=== PATIENT | female | born 1940 | race Caucasian/White ===

== ENCOUNTER 2019-02-15 10:32 | Emergency (ER) | payer OTHER ==
[~2019-02-15] VITALS: Ht 152.4 cm; Wt 70.3 kg
--- NOTE | 2019-02-15 10:45 | NUR ---
PATIENT AMB. TO BED # 9
[2019-02-15 10:49] VITALS: BP 146/76
--- NOTE | 2019-02-15 11:26 | NUR ---
PT HAS BEEN EVALUATED BY DR. CONNER.
--- NOTE | 2019-02-15 11:43 | NUR ---
PELVIC EXAM COMPETED BY DR. CONNER WITH FEMALE RN DIDI. LAB AT BEDSIDE TO DRAW BLOOD.
--- NOTE | 2019-02-15 11:52 | NUR ---
PT REFUSED IV. DR. CONNER MADE AWARE. U/S AT BEDSIDE. PT ON MONITOR NSR, SPO2 98%. PT DENIES PAIN.
[2019-02-15 11:56] LABS: BASOPHILS % (AUTO) 0.4 % (0.0-2.0); EOSINOPHILS # (AUTO) 0.1 K/uL (0-0.4); EOSINOPHILS % (AUTO) 0.9 % (0.0-4.0); HEMATOCRIT 37.9 % (36-48); HEMOGLOBIN 12.1 g/dL (12.0-16.0); LYMPHOCYTES # (AUTO) 1.4 K/uL (2.5-16.5); MEAN CORPUSCULAR HEMOGLOBIN 25 pg (27-31); MEAN CORPUSCULAR HGB CONC 32 g/dL (33-37); MEAN CORPUSCULAR VOLUME 78.4 fL (80-94); MONOCYTES # (AUTO) 0.5 K/uL (0.8-1.0); MONOCYTES % (AUTO) 5.6 % (1.7-9.3); NEUTROPHILS # (AUTO) 6.9 K/uL (1.8-7.7); NEUTROPHILS % (AUTO) 77.1 % (42.2-75.2); PLATELET COUNT (AUTO) 313 K/uL (140-450); RED BLOOD CELL COUNT(AUTO) 4.83 MIL/uL (4.20-5.40); RED CELL DISTRIBUTION WIDTH 15.1 % (11.6-13.7)
[2019-02-15 12:07] LABS: ANION GAP 13.9 (8-16); CARBON DIOXIDE 28.6 mmol/L (21-32); CHLORIDE 103 mmol/L (98-107); CREATININE 0.6 mg/dL (0.6-1.3); GLUCOSE 119 mg/dL (74-106); POTASSIUM 4.5 mmol/L (3.5-5.1); SODIUM SERUM 141 mmol/L (136-145); UREA NITROGEN, BLOOD 20 mg/dL (7-18)
[2019-02-15 12:11] LABS: PROTHROMBIN TIME 10.3 secs (10.8-13.4)
[2019-02-15 12:13] LABS: ALBUMIN 3.7 g/dL (3.4-5.0); ASPARTATE AMINOTRANSFERASE 27 U/L (15-37); TOTAL BILIRUBIN 0.5 mg/dL (0.0-1.0)
--- NOTE | 2019-02-15 12:49 | NUR ---
SECOND PELVIC EXAM COMPLETED BY DR. CONNER WITH FEMALE RN DIDI. PT NOW AGREES TO IV PLACEMENT.
[2019-02-15] MEDS ORDERED: KETOROLAC 15 MG/ML VIAL IVP ONE (13:45)
--- NOTE | 2019-02-15 14:01 | NUR ---
PT MEDICATED FOR PAIN. PT'S FRIEND AT BEDSIDE. VAGINAL BLEEDING CONTROLLED. AWAITING DISPOSITON.
--- NOTE | 2019-02-15 14:36 | NUR ---
PT'S PAIN DECREASED 3/10
--- NOTE | 2019-02-15 15:03 | NUR ---
DYAN HICKEY JOB PLACEMENT SPECIALIST CALLED FOR MORE INFORMATION ABOUT PT. SHE WILL CALL BACK.
--- NOTE | 2019-02-15 15:18 | NUR ---
PT REMAINS A&OX4, SKIN WARM PINK AND DRY, BREATHING EVEN AND UNLABOERD. NSR ON MONITOR. PELVIC PAIN DECREASED /. AWAITING TRANSFER INFORMATION. CONTINUE TO MONITOR.
--- NOTE | 2019-02-15 15:52 | NUR ---
DR. CONNER AT BEDSIDE TO SPEAK TO PT.
--- NOTE | 2019-02-15 16:26 | NUR ---
LAB AT BEDSIDE TO DRAW BLOOD.
--- NOTE | 2019-02-15 16:30 | NUR ---
PT REMAINS A&OX4, BREATHING EVEN AND UNLABORED. NSR ON MONITOR. DENIES PAIN, REQUESTING TO EAT. PT IS NPO PER DR. CONNER AT THIS TIME. PT MADE AWARE. PT'S FRIEND YAMILEX AT BEDSIDE. AWAITING TRANSFER INFO, NO NEW INFO AT THIS TIME.
[2019-02-15 16:46] LABS: BASOPHILS % (AUTO) 0.4 % (0.0-2.0); EOSINOPHILS # (AUTO) 0.1 K/uL (0-0.4); HEMATOCRIT 35.5 % (36-48); HEMOGLOBIN 11.6 g/dL (12.0-16.0); LYMPHOCYTES # (AUTO) 1.6 K/uL (2.5-16.5); LYMPHOCYTES % (AUTO) 22.6 % (20.5-51.1); MEAN CORPUSCULAR HEMOGLOBIN 25 pg (27-31); MEAN CORPUSCULAR HGB CONC 33 g/dL (33-37); MEAN CORPUSCULAR VOLUME 77.8 fL (80-94); MONOCYTES # (AUTO) 0.6 K/uL (0.8-1.0); NEUTROPHILS # (AUTO) 4.8 K/uL (1.8-7.7); PLATELET COUNT (AUTO) 280 K/uL (140-450); RED BLOOD CELL COUNT(AUTO) 4.56 MIL/uL (4.20-5.40); RED CELL DISTRIBUTION WIDTH 15.1 % (11.6-13.7); WHITE BLOOD COUNT (AUTO) 7.1 K/uL (4.8-10.8)
--- NOTE | 2019-02-15 17:19 | NUR ---
DR. CONNER AT BEDSIDE TO SPEAK TO PT AND PT'S FRIEND AND ANSWER QUESTIONS.
--- NOTE | 2019-02-15 17:41 | NUR ---
PT RE-EVALUATED BY DR. CONNER. VAGINAL BLEEDING CONTROLLED. NO DIZZINESS/SOB. PT DENIES PAIN.
[2019-02-15 18:07] VITALS: BP 145/57
--- NOTE | 2019-02-15 18:07 | NUR ---
Patient discharged with v/s stable. Written and verbal after care instructions given and explained. Patient alert, oriented and verbalized understanding of instructions. Ambulatory with steady gait. All questions addressed prior to discharge. ID band removed. Patient advised to follow up with PMD. Opportunity to ask questions provided and answered.
== END 2019-02-15 18:07 | disposition home or self-care (01) ==
LOC: MED 10:32
DX: N95.0 Postmenopausal bleeding (principal)
CPT/HCPCS: 36415; 76856; 80053; 81002; 85025; 85610; 85730; 86886; 86900; 86901; 96374; 99284; J1885; Q0092

== ENCOUNTER 2022-10-28 23:30 | Inpatient (IN) | payer OTHER ==
[~2022-10-28] VITALS: Ht 149.9 cm; Wt 58.5 kg
--- NOTE | 2022-10-28 23:34 | NUR ---
MARY SARMIENTO TO BED #7
[2022-10-28 23:36] VITALS: BP 181/126
[2022-10-29] MEDS ORDERED: PHENAZOPYRIDINE 100 MG TAB PO ONE (00:10)
[2022-10-29 00:40] LABS: APPEARANCE,URINE CLEAR (CLEAR); BILIRUBIN,URINE NEGATIVE (NEGATIVE); BLOOD, URINE 3+ (NEGATIVE); COLOR,URINE YELLOW (YELLOW); LEUKOCYTE ESTERASE ,URINE NEGATIVE (NEGATIVE); NITRITE, URINE NEGATIVE (NEGATIVE); UGLUCOSE NEGATIVE (NEGATIVE)
[2022-10-29 00:40] LABS: BASOPHILS % (AUTO) 0.7 % (0.0-2.0); EOSINOPHILS # (AUTO) 0.1 K/uL (0-0.4); EOSINOPHILS % (AUTO) 1.9 % (0.0-4.0); HEMATOCRIT 43.6 % (36-48); HEMOGLOBIN 13.8 g/dL (12.0-16.0); LYMPHOCYTES # (AUTO) 1.1 K/uL (2.5-16.5); LYMPHOCYTES % (AUTO) 17.4 % (20.5-51.1); MEAN CORPUSCULAR HEMOGLOBIN 26 pg (27-31); MEAN CORPUSCULAR HGB CONC 32 g/dL (33-37); MEAN CORPUSCULAR VOLUME 81.1 fL (80-94); MONOCYTES # (AUTO) 0.7 K/uL (0.8-1.0); MONOCYTES % (AUTO) 10.3 % (1.7-9.3); NEUTROPHILS # (AUTO) 4.5 K/uL (1.8-7.7); NEUTROPHILS % (AUTO) 69.7 % (42.2-75.2); PLATELET COUNT (AUTO) 199 K/uL (140-450); RED BLOOD CELL COUNT(AUTO) 5.38 MIL/uL (4.20-5.40); RED CELL DISTRIBUTION WIDTH 16.9 % (11.6-13.7); WHITE BLOOD COUNT (AUTO) 6.5 K/uL (4.8-10.8)
[2022-10-29 00:49] LABS: RBC,URINE TOO NUMEROUS TO COUN /HPF (0-5); WBC,URINE 0-5 /HPF (0-5)
[2022-10-29 01:14] LABS: ALBUMIN 3.8 g/dL (3.4-5.0); ASPARTATE AMINOTRANSFERASE 35 U/L (15-37); CARBON DIOXIDE 28.6 mmol/L (21-32); CHLORIDE 104 mmol/L (98-107); CREATININE 0.7 mg/dL (0.6-1.3); GLUCOSE 116 mg/dL (74-106); POTASSIUM 4.6 mmol/L (3.5-5.1); SODIUM SERUM 142 mmol/L (136-145); TOTAL BILIRUBIN 0.4 mg/dL (0.0-1.0); UREA NITROGEN, BLOOD 23 mg/dL (7-18)
--- NOTE | 2022-10-29 01:20 | NUR ---
82YR OLD FEMALE BIB EMS C/O VAG BLEEDING X2HRS . HX OF UTERINE CA /BLADDER CA IN REMISSION. PT IS A&OX4 ON BEDSIDE ON AIR DIRECTOR. IS TACHYCADIAC. RESP EVEN AND UNLABORED. BED AT LOWEST LEVEL SIDE RAILS UP X2 IV CONTRAST UTERINE CA
--- NOTE | 2022-10-29 02:06 | NUR ---
COVID SWAB COLLECTED AND SENT TO LAB
[2022-10-29] MEDS ORDERED: TYL650S RC (02:07)
[2022-10-29] MEDS ORDERED: DULO30EC PO (02:08)
[2022-10-29] MEDS ORDERED: ACET-8905 PO (02:09)
[2022-10-29] MEDS ORDERED: XALOS OP (02:10)
[2022-10-29] MEDS ORDERED: ATI.5 PO (02:11)
[2022-10-29] MEDS ORDERED: PYR100 PO (02:12)
[2022-10-29] MEDS ORDERED: OXYB5TAB44 PO (02:12)
[2022-10-29] MEDS ORDERED: PRAV20TA5 PO (02:13)
[2022-10-29] MEDS ORDERED: ZOLP10TA1 PO (02:14)
--- NOTE | 2022-10-29 02:15 | NUR ---
MED RECONCILE COMPLETED
[2022-10-29] MEDS ORDERED: NACL 0.9% 1,000 ML IV ONE (02:20)
[2022-10-29] MEDS ORDERED: cefTRIAXone 1,000 MG VIAL ONE (02:37)
[2022-10-29] MEDS ORDERED: NACL 0.9% 1,000 ML IV SCH (03:05)
--- NOTE | 2022-10-29 04:04 | NUR ---
PT HAVING 6/10 PAIN . MED ORDERS RECIEVED FROM DR CONTI
[2022-10-29] MEDS ORDERED: HYDROcodone/APAP 5/325 MG 1 TAB TAB PO PRN (04:10)
[2022-10-29] MEDS ORDERED: HYDROcodone/APAP 5/325 MG 1 TAB TAB ONE (04:11)
--- NOTE | 2022-10-29 06:40 | NUR ---
PT RESTING IN BED ON CARDIAC HEART MONITOR. HOB ELEVATED. RESP EVEN AND UNLABORED
--- NOTE | 2022-10-29 07:25 | NUR ---
Report received from EUGENIO Jackson for transfer of care.
--- NOTE | 2022-10-29 07:49 | NUR ---
Spoke to Brooks, son, and updated him on patients condition. Brooks [phone]
--- NOTE | 2022-10-29 08:27 | NUR ---
Note ana maria in EDM - 10/29/22 at 0851 by FARHAT Patient will be admitted to care of Dr. Claire. [facility] [place] [facility] completed. Report to LUIZ Coelho.
--- NOTE | 2022-10-29 08:36 | NUR ---
Patient will be admitted to care of Alethea KINNEY. Admitted to Telemetry. Will go to room 111A. Belongings list completed. Report to Laquita DEE.
--- NOTE | 2022-10-29 08:37 | NUR ---
Pt report given to Laqiuta DEE. Transfer of care at this time.
--- NOTE | 2022-10-29 08:39 | NUR ---
The patient's care was reviewed and supervised by Teressa Crowe, RN, RN.
[2022-10-29] MEDS ORDERED: ACETAMINOPHEN 325 MG TAB PO PRN (08:45)
[2022-10-29] MEDS ORDERED: HYDROcodone/APAP 7.5/325 MG 1 TAB PO PRN (08:45)
[2022-10-29] MEDS ORDERED: guaiFENesin DM 200/20 MG-10 ML 10 ML UDC PO PRN (08:45)
[2022-10-29] MEDS ORDERED: MORPHINE SULFATE 2 MG/ML SYR IVP PRN (08:45)
[2022-10-29] MEDS ORDERED: POTASSIUM CHLORIDE 10 MEQ TABER PO PRN (08:45)
[2022-10-29] MEDS ORDERED: ZOLPIDEM 5 MG TAB PO PRN (08:45)
[2022-10-29] MEDS ORDERED: DOCUSATE SODIUM 100 MG GELCAP PO PRN (08:45)
[2022-10-29] MEDS ORDERED: ONDANSETRON 4 MG/2 ML VIAL IM/IVP PRN (08:45)
[2022-10-29] MEDS ORDERED: LORazepam 0.5 MG TAB PO PRN (08:50)
[2022-10-29] MEDS: PHENAZOPYRIDINE 100 MG TAB PO SCH ×3 (09:00→17:09)
[2022-10-29] MEDS: DULoxetine 30 MG CAPDR PO SCH (09:00)
[2022-10-29] MEDS: PANTOPRAZOLE 40 MG TABEC PO SCH (09:00)
[2022-10-29] MEDS: NACL 0.9% 1,000 ML IV SCH (09:10)
[2022-10-29 09:49] VITALS: BP 114/70
--- NOTE | 2022-10-29 10:04 | NUR ---
RECEIVED PT. FROM ER AT 0836 IN STABLE CONDITION. AAOX3, VERBALLY RESPONSIVE. NO ACUTE DISTRESS NOTED. AFEBRILE. VS WNL. MRSA SWAB OBTAINED. LABS ARE NORMAL. NO ACUTE DISTRESS NO9TED AT THIS TIME. ALL ORDERS REVIEWED FROM ED. PMD AT BEDSIDE ASSESSED PT.
[2022-10-29 11:19] LABS: CHOL/HDL RATIO 3.4 (1-4.5); FREE T4 (FREE THYROXINE) 0.91 ng/dL (0.76-1.46); MAGNESIUM 1.6 mg/dL (1.8-2.4); PHOSPHORUS 3.9 mg/dL (2.5-4.9); THYROID STIMULATING HORMONE 5.48 uIU/mL (0.34-3.74)
[2022-10-29 11:20] LABS: PROTHROMBIN TIME 9.9 secs (10.8-13.4)
[2022-10-29 12:00] VITALS: BP 144/109
[2022-10-29] MEDS ORDERED: amLODIPine 5 MG TAB ONE (13:47)
[2022-10-29] MEDS ORDERED: amLODIPine 5 MG TAB PO SCH (14:00)
[2022-10-29] MEDS ORDERED: DIGOXIN 0.25 MG/ML AMP IV SCH (14:45)
[2022-10-29 16:00] VITALS: BP 137/86
--- NOTE | 2022-10-29 16:52 | NUR ---
PATIENT HAS BEEN SCREENED AND CATEGORIZED MODERATE NUTRITION RISK. PATIENT WILL BE SEEN WITHIN 3-5 DAYS OF ADMISSION. 11/01/2212/26/[address] REVIEWED BY BUCK [address]
[2022-10-29] MEDS ORDERED: MAG SULF 2000 MG/WATER PREMIX 50 ML IV SCH (18:00)
--- NOTE | 2022-10-29 19:15 | NUR ---
RECEIVED PT FROM MORNING SHIFT NURSE. PT IS LYING ON THE BED WITH SON NAMED KAREN ON BEDSIDE. PT IS AOX4, ABLE TO FOLLOW COMMANDS AND ABLE TO VERBALIZE NEEDS. PT IS ON ROOM AIR AND ON REGULAR DIET. PT HAS IV ON RIGHT FOREARM GAUGE 22 RUNNING WITH NS AT 60. PT SKIN IS INTACT. NO S/S OF PAIN AT THIS TIME. NO S/S OF RESPIRATORY DISTRESS NOTED. ALL SAFETY MEASURES IMPLEMENTED. BED IN LOW POSITION, BED WHEELS ON LOCK AND CALL LIGHT WITHIN REACH.
[2022-10-29 20:00] VITALS: BP 146/67
[2022-10-29] MEDS: METOPROLOL 50 MG TAB PO SCH (20:05)
--- NOTE | 2022-10-29 20:06 | NUR ---
ALL SCHEDULED AND PRESCRIBED MEDICATION WAS GIVEN TO PT PER MD ORDER. ALL SAFETY MEASURES IMPLEMENTED. BED IN LOW POSITION, BED WHEELS ON LOCK AND CALL LIGHT WITHIN REACH.
[2022-10-29] MEDS ORDERED: OXYBUTYNIN 5 MG TAB PO SCH (21:00)
[2022-10-29] MEDS ORDERED: LATANOPROST 0.005% OP 2.5 ML BTL OP SCH (21:00)
--- NOTE | 2022-10-29 22:00 | NUR ---
PT WAS GIVEN DISPOSABLE [place]ERWEAR AND [facility]IT[facility] [place]. PT DENIES PAIN AT THIS TIME. NO S/S OF RESPIRATORY DISTRESS NOTED. ALL SAFETY MEASURES IMPLEMENTED. BED IN LOW POSITION, BED WHEELS ON LOCK AND CALL LIGHT WITHIN REACH.
[2022-10-30] VITALS: BP 147/66
--- NOTE | 2022-10-30 | NUR ---
INSERTED NEW IV DUE TO IV REMOVAL. IV WAS ON RIGHT HAND GAUGE 22. IV IS NOW PATENT AND INTACT. ALL SAFETY MEASURES IMPLEMENTED. BED IN LOW POSITION, BED WHEELS ON LOCK AND CALL LIGHT WITHIN REACH. Addendum: 10/30/22 at 0250 by Nimisha Corral RN WRONG SITE
--- NOTE | 2022-10-30 | NUR ---
INSERTED NEW IV DUE TO IV REMOVAL. IV WAS ON LEFT HAND GAUGE 22. IV IS NOW PATENT AND INTACT. ALL SAFETY MEASURES IMPLEMENTED. BED IN LOW POSITION, BED WHEELS ON LOCK AND CALL LIGHT WITHIN REACH.
[2022-10-30] MEDS: NACL 0.9% 1,000 ML IV SCH (01:25)
--- NOTE | 2022-10-30 02:00 | NUR ---
PT IS WATCHING TV. NO COMPLAIN OF PAIN AT THIS TIME. NO S/S OF RESPIRATORY DISTRESS NOTED. ALL SAFETY MEASURES IMPLEMENTED. BED IN LOW POSITION, BED WHEELS ON LOCK AND CALL LIGHT WITHIN REACH.
[2022-10-30 04:00] VITALS: BP 145/66
--- NOTE | 2022-10-30 04:00 | NUR ---
PT IS ON SLEEP. CHEST RISE AND FALL SYMMETRICALLY NOTED. RESPIRATION IS EVEN AND UNLABORED. ALL SAFETY MEASURES IMPLEMENTED. BED IN LOW POSITION, BED WHEELS ON LOCK AND CALL LIGHT WITHIN REACH.
[2022-10-30] MEDS: METOPROLOL 50 MG TAB PO SCH (04:28)
--- NOTE | 2022-10-30 07:20 | NUR ---
PT IS STABLE. ENDORSE PT TO MORNING SHIFT NURSE FOR CONTINUITY OF CARE.
[2022-10-30 07:23] LABS: CARBON DIOXIDE 26.7 mmol/L (21-32); CHLORIDE 102 mmol/L (98-107); CREATININE 0.6 mg/dL (0.6-1.3); GLUCOSE 107 mg/dL (74-106); POTASSIUM 3.7 mmol/L (3.5-5.1); SODIUM SERUM 135 mmol/L (136-145); UREA NITROGEN, BLOOD 17 mg/dL (7-18)
[2022-10-30 07:34] LABS: BASOPHILS % (AUTO) 0.3 % (0.0-2.0); EOSINOPHILS # (AUTO) 0.1 K/uL (0-0.4); EOSINOPHILS % (AUTO) 1.5 % (0.0-4.0); HEMATOCRIT 37.7 % (36-48); HEMOGLOBIN 12.3 g/dL (12.0-16.0); LYMPHOCYTES # (AUTO) 1.1 K/uL (2.5-16.5); MEAN CORPUSCULAR HEMOGLOBIN 26 pg (27-31); MEAN CORPUSCULAR HGB CONC 33 g/dL (33-37); MEAN CORPUSCULAR VOLUME 80.1 fL (80-94); MONOCYTES # (AUTO) 0.8 K/uL (0.8-1.0); MONOCYTES % (AUTO) 9.4 % (1.7-9.3); NEUTROPHILS # (AUTO) 6.1 K/uL (1.8-7.7); NEUTROPHILS % (AUTO) 74.8 % (42.2-75.2); PLATELET COUNT (AUTO) 153 K/uL (140-450); RED CELL DISTRIBUTION WIDTH 16.8 % (11.6-13.7); WHITE BLOOD COUNT (AUTO) 8.2 K/uL (4.8-10.8)
[2022-10-30 08:08] LABS: T4 (THYROXINE) 7.2 ug/dL (4.5-12.0)
[2022-10-30] MEDS: PANTOPRAZOLE 40 MG TABEC PO SCH (09:00)
[2022-10-30] MEDS: DULoxetine 30 MG CAPDR PO SCH (09:00)
[2022-10-30] MEDS ORDERED: amLODIPine 5 MG TAB PO SCH (09:00)
[2022-10-30] MEDS ORDERED: AMLO10TA PO (09:20)
[2022-10-30] MEDS ORDERED: CEPH-588 PO (09:20)
[2022-10-30] MEDS: PHENAZOPYRIDINE 100 MG TAB PO SCH (09:30)
--- NOTE | 2022-10-30 10:42 | NUR ---
DISCONTINUE INTACT 22 GAUGE INTRAVENOUS CATHETER FROM LEFT WRIST. IDENTIFICATION BAND REMOVAL. DISCHARGE INSTRUCTIONS AND MEDICATION RECONCILIATION DISCUSSION WITH SON AND PATIENT. PATIENT AND SON VERBALIZE UNDERSTANDING OF TEACHING. PHARMACY PREFERENCE CHANGE PER PATIENT REQUEST.
== END 2022-10-30 11:00 | disposition home or self-care (01) | DRG 690 ==
LOC: MED 23:30 → MTU 10-29 03:05
PROVIDERS: ADMIT Family Medicine; ATTEND Family Medicine
DX: N30.01 Acute cystitis with hematuria (principal); I48.20 Chronic atrial fibrillation, unspecified; E78.5 Hyperlipidemia, unspecified; Z20.822 Contact with and (suspected) exposure to COVID-19; F17.200 Nicotine dependence, unspecified, uncomplicated; R80.9 Proteinuria, unspecified; Z85.41 Personal history of malignant neoplasm of cervix uteri; Z85.51 Personal history of malignant neoplasm of bladder; Z91.041 Radiographic dye allergy status; I10 Essential (primary) hypertension
CPT/HCPCS: 36415; 71045; 76770; 80048; 80053; 81001; 82150; 83036; 83605; 83690; 83735; 83880; 84100; 84436; 84439; 84443; 84479; 85025; 85610; 85730; 87040; 87081; 93005; 96365; 99285; J0696; J1160; J3475; Q0092

== ENCOUNTER 2023-10-21 21:26 | Inpatient (IN) | payer OTHER ==
[~2023-10-21] VITALS: Ht 160 cm; Wt 40.8 kg
[~2023-10-21 21:26] MED LIST: ACET-8905 PO; AMLO10TA PO; ATI.5 PO; CEPH-588 PO; DULO30EC PO; OXYB5TAB44 PO; PRAV20TA5 PO; PYR100 PO; TYL650S RC; XALOS OP; ZOLP10TA1 PO
[2023-10-21 21:38] VITALS: BP 117/76; PULSE 76; RESP 16; TEMP 97.8; O2SAT 98
[2023-10-22] MEDS ORDERED: VANCOMYCIN 1,000 MG in DEXTROSE 5% 250 ML IV ONE (01:20)
[2023-10-22] MEDS ORDERED: ONDANSETRON 4 MG/2 ML VIAL IVP ONE (01:20)
[2023-10-22] MEDS ORDERED: PIPERACILLIN/TAZOBACTAM 3.375 GM in DEXTROSE 5% 50 ML IV ONE ×2 (01:20→05:20)
[2023-10-22] MEDS ORDERED: MORPHINE SULFATE 4 MG/ML SYR IVP ONE (01:20)
[2023-10-22 02:02] LABS: APPEARANCE,URINE CLEAR (CLEAR); BILIRUBIN,URINE NEGATIVE (NEGATIVE); BLOOD, URINE NEGATIVE (NEGATIVE); COLOR,URINE YELLOW (YELLOW); LEUKOCYTE ESTERASE ,URINE NEGATIVE (NEGATIVE); NITRITE, URINE NEGATIVE (NEGATIVE); PROTEIN,URINE NEGATIVE (NEGATIVE); UGLUCOSE NEGATIVE (NEGATIVE); UROBILINOGEN,URINE 0.2 EU/dL (0.2 - 1)
[2023-10-22] MEDS ORDERED: VANCOMYCIN 1,000 MG VIAL ONE (02:08)
[2023-10-22] MEDS ORDERED: PIPERACILLIN/TAZOBACTAM 3.375 GM VIAL IV ONE (02:09)
[2023-10-22 02:19] LABS: BASOPHILS % (AUTO) 0.1 % (0.0-2.0); HEMOGLOBIN 8.2 g/dL (12.0-16.0); LYMPHOCYTES % (AUTO) 8.9 % (20.5-51.1); MEAN CORPUSCULAR HEMOGLOBIN 27 pg (27-31); MEAN CORPUSCULAR HGB CONC 32 g/dL (33-37); MEAN CORPUSCULAR VOLUME 85.1 fL (80-94); MONOCYTES # (AUTO) 0.6 K/uL (0.8-1.0); PLATELET COUNT (AUTO) 291 K/uL (140-450); RED BLOOD CELL COUNT(AUTO) 3.06 MIL/uL (4.20-5.40); RED CELL DISTRIBUTION WIDTH 16.2 % (11.6-13.7); WHITE BLOOD COUNT (AUTO) 11.6 K/uL (4.8-10.8)
[2023-10-22 02:27] LABS: CALCIUM 8.2 mg/dL (8.5-10.1); CARBON DIOXIDE 26.6 mmol/L (21-32); CHLORIDE 103 mmol/L (98-107); CREATININE 0.7 mg/dL (0.6-1.3); GLUCOSE 100 mg/dL (74-106); POTASSIUM 3.6 mmol/L (3.5-5.1); SODIUM SERUM 139 mmol/L (136-145); UREA NITROGEN, BLOOD 26 mg/dL (7-18)
[2023-10-22 02:33] LABS: ALBUMIN 2.4 g/dL (3.4-5.0); BILIRUBIN,DIRECT 0.1 mg/dL (0.0-0.3); TOTAL BILIRUBIN 0.3 mg/dL (0.0-1.0); TOTAL PROTEIN, SERUM 6.4 g/dL (6.4-8.2)
[2023-10-22 02:36] LABS: LACTIC ACID 0.7 mmol/L (0.4-2.0)
[2023-10-22] MEDS ORDERED: LORA-476 PO (04:04)
[2023-10-22] MEDS ORDERED: DORZ10DR3 OP (04:04)
[2023-10-22] MEDS ORDERED: ATOR20TA PO (04:04)
[2023-10-22] MEDS ORDERED: PRED10TA5 PO (04:04)
[2023-10-22] MEDS ORDERED: ASCO500T95 PO (04:04)
[2023-10-22] MEDS ORDERED: ZINC50CA3 PO (04:04)
[2023-10-22] MEDS ORDERED: CHOL200072 PO (04:04)
[2023-10-22] MEDS ORDERED: CYAN1TAB52 PO (04:04)
[2023-10-22] MEDS ORDERED: ZOLP5TAB1 PO (04:04)
[2023-10-22] MEDS ORDERED: XALOS OP (04:04)
[2023-10-22] MEDS ORDERED: MORPHINE SULFATE 2 MG/ML SYR IVP PRN (05:20)
[2023-10-22] MEDS ORDERED: VANCOMYCIN PER PHARMACY MC PRN ×2 (05:20→05:30)
[2023-10-22] MEDS ORDERED: ACETAMINOPHEN 325 MG TAB PO PRN (05:20)
[2023-10-22] MEDS ORDERED: ONDANSETRON 4 MG/2 ML VIAL IVP PRN (05:20)
[2023-10-22] MEDS ORDERED: LORazepam 0.5 MG TAB PO PRN (05:30)
[2023-10-22] MEDS ORDERED: TIMOLOL OP 0.5% 5 ML BTL OP ONE (05:30)
[2023-10-22] MEDS: HYDROcodone/APAP 5/325 MG 1 TAB TAB PO PRN ×3 (06:07→20:43)
[2023-10-22] MEDS: NACL 0.9% 1,000 ML IV SCH (06:16)
[2023-10-22] MEDS: ASCORBIC ACID 500 MG TAB PO SCH (09:00)
[2023-10-22] MEDS: DULoxetine 30 MG CAPDR PO SCH (09:00)
[2023-10-22] MEDS: OXYBUTYNIN 5 MG TAB PO SCH (09:00)
[2023-10-22] MEDS ORDERED: LATANOPROST 0.005% OP 2.5 ML BTL OP SCH (09:00)
[2023-10-22] MEDS: DEXT 5% /NACL 0.9% 1,000 ML IV SCH (09:05)
[2023-10-22 10:20] LABS: INR 1.09 (0.8-1.2); PARTIAL THROMBOPLASTIN TIME 31.1 secs (22-35.6); PROTHROMBIN TIME 11.4 secs (10.8-13.4)
[2023-10-22] MEDS ORDERED: PROPOFOL 200 MG/20 ML VIAL IV ONE ×2 (11:08)
[2023-10-22] MEDS ORDERED: MIDAZOLAM 2 MG/2 ML VIAL ONE (11:17)
[2023-10-22] MEDS ORDERED: LIDOCAINE/EPI MPF 1%1:200000 30 ML VIAL INJ ONE (11:27)
[2023-10-22] MEDS ORDERED: BUPIVACAINE-MPF 0.5% 30 ML VIAL INJ ONE (11:27)
[2023-10-22 12:34] VITALS: RESP 18; O2SAT 97
[2023-10-22] MEDS: VANCOMYCIN 750 MG in DEXTROSE 5% 250 ML IV SCH (13:28)
[2023-10-22 16:35] VITALS: BP 134/67; PULSE 65; RESP 18; TEMP 97.5; O2SAT 98
[2023-10-22 20:00] VITALS: BP 130/65; PULSE 78; RESP 18; TEMP 97.2; O2SAT 100
[2023-10-22] MEDS: ATORVASTATIN 20 MG TAB PO SCH (20:43)
[2023-10-22] MEDS: LATANOPROST 0.005% OP 2.5 ML BTL OP SCH (20:46)
[2023-10-22] MEDS: ZOLPIDEM 5 MG TAB PO PRN (23:06)
[2023-10-23] MEDS: NACL 0.9% 1,000 ML IV SCH (01:20)
[2023-10-23] MEDS: VANCOMYCIN 750 MG in DEXTROSE 5% 250 ML IV SCH ×2 (01:41→13:58)
[2023-10-23 04:00] VITALS: BP 144/78; PULSE 83; RESP 18; TEMP 98.6; O2SAT 99
[2023-10-23] MEDS: DEXT 5% /NACL 0.9% 1,000 ML IV SCH (05:05)
[2023-10-23 05:37] LABS: BASOPHILS % (AUTO) 0.2 % (0.0-2.0); HEMATOCRIT 28.6 % (36-48); HEMOGLOBIN 9.1 g/dL (12.0-16.0); LYMPHOCYTES # (AUTO) 0.6 K/uL (2.5-16.5); MEAN CORPUSCULAR HEMOGLOBIN 27 pg (27-31); MEAN CORPUSCULAR HGB CONC 32 g/dL (33-37); MONOCYTES # (AUTO) 0.4 K/uL (0.8-1.0); MONOCYTES % (AUTO) 5.1 % (1.7-9.3); NEUTROPHILS % (AUTO) 85.7 % (42.2-75.2); PLATELET COUNT (AUTO) 281 K/uL (140-450); RED BLOOD CELL COUNT(AUTO) 3.37 MIL/uL (4.20-5.40)
[2023-10-23 05:54] LABS: ANION GAP 12.1 (8-16); CALCIUM 8.2 mg/dL (8.5-10.1); CARBON DIOXIDE 27.6 mmol/L (21-32); CHLORIDE 103 mmol/L (98-107); CREATININE 0.6 mg/dL (0.6-1.3); GLUCOSE 107 mg/dL (74-106); POTASSIUM 3.7 mmol/L (3.5-5.1); SODIUM SERUM 139 mmol/L (136-145); UREA NITROGEN, BLOOD 18 mg/dL (7-18)
[2023-10-23] MEDS: ASCORBIC ACID 500 MG TAB PO SCH (08:17)
[2023-10-23] MEDS: DULoxetine 30 MG CAPDR PO SCH (08:18)
[2023-10-23] MEDS: HYDROcodone/APAP 5/325 MG 1 TAB TAB PO PRN (08:18)
[2023-10-23] MEDS: OXYBUTYNIN 5 MG TAB PO SCH (08:18)
[2023-10-23 08:49] VITALS: BP 120/57; PULSE 78; RESP 17; TEMP 97.5; O2SAT 99
[2023-10-23 16:07] VITALS: BP 104/50; PULSE 78; RESP 18; TEMP 97; O2SAT 99
[2023-10-23 20:00] VITALS: BP 96/58; PULSE 80; RESP 18; RESP 19; TEMP 98.4; O2SAT 98; O2SAT 99
[2023-10-23] MEDS: ATORVASTATIN 20 MG TAB PO SCH (20:50)
[2023-10-23] MEDS: LATANOPROST 0.005% OP 2.5 ML BTL OP SCH (20:54)
[2023-10-23] MEDS: ZOLPIDEM 5 MG TAB PO PRN (23:41)
[2023-10-24] MEDS ORDERED: VANCOMYCIN 1,000 MG VIAL ONE (02:40)
[2023-10-24] MEDS: VANCOMYCIN 750 MG in DEXTROSE 5% 250 ML IV SCH ×2 (02:58→13:13)
[2023-10-24 04:00] VITALS: BP 132/69; PULSE 77; RESP 16; TEMP 97.2; O2SAT 96
[2023-10-24 06:08] LABS: BASOPHILS % (AUTO) 0.3 % (0.0-2.0); HEMOGLOBIN 8.7 g/dL (12.0-16.0); LYMPHOCYTES # (AUTO) 0.9 K/uL (2.5-16.5); MEAN CORPUSCULAR HEMOGLOBIN 27 pg (27-31); MEAN CORPUSCULAR HGB CONC 32 g/dL (33-37); MEAN CORPUSCULAR VOLUME 85.1 fL (80-94); MONOCYTES # (AUTO) 0.5 K/uL (0.8-1.0); NEUTROPHILS # (AUTO) 5.7 K/uL (1.8-7.7); NEUTROPHILS % (AUTO) 79.7 % (42.2-75.2); PLATELET COUNT (AUTO) 277 K/uL (140-450); RED BLOOD CELL COUNT(AUTO) 3.18 MIL/uL (4.20-5.40); RED CELL DISTRIBUTION WIDTH 15.6 % (11.6-13.7); WHITE BLOOD COUNT (AUTO) 7.2 K/uL (4.8-10.8)
[2023-10-24 06:23] LABS: ANION GAP 9.6 (8-16); CALCIUM 7.8 mg/dL (8.5-10.1); CARBON DIOXIDE 27.1 mmol/L (21-32); CHLORIDE 104 mmol/L (98-107); CREATININE 0.7 mg/dL (0.6-1.3); GLUCOSE 112 mg/dL (74-106); POTASSIUM 3.7 mmol/L (3.5-5.1); SODIUM SERUM 137 mmol/L (136-145); UREA NITROGEN, BLOOD 25 mg/dL (7-18)
[2023-10-24] MEDS: DULoxetine 30 MG CAPDR PO SCH (08:21)
[2023-10-24] MEDS: OXYBUTYNIN 5 MG TAB PO SCH (08:21)
[2023-10-24] MEDS: ASCORBIC ACID 500 MG TAB PO SCH (08:21)
[2023-10-24] MEDS: HYDROcodone/APAP 5/325 MG 1 TAB TAB PO PRN (08:22)
[2023-10-24 09:29] VITALS: PULSE 51; RESP 18; O2SAT 98
[2023-10-24 09:30] VITALS: BP 118/55; PULSE 51; RESP 18; TEMP 97.6; O2SAT 98
[2023-10-24] MEDS: DOCUSATE SODIUM 100 MG GELCAP PO PRN (09:48)
[2023-10-24] MEDS: GAUZE TP SCH (10:40)
[2023-10-24 16:11] VITALS: BP 99/51; PULSE 75; RESP 18; TEMP 98.2; O2SAT 98
[2023-10-24 20:00] VITALS: PULSE 74; RESP 18; O2SAT 95
[2023-10-24] MEDS: LATANOPROST 0.005% OP 2.5 ML BTL OP SCH (21:21)
[2023-10-24] MEDS: ATORVASTATIN 20 MG TAB PO SCH (21:21)
[2023-10-24] MEDS: ZOLPIDEM 5 MG TAB PO PRN (21:21)
[2023-10-25] MEDS: VANCOMYCIN 750 MG in DEXTROSE 5% 250 ML IV SCH (01:18)
[2023-10-25 04:00] VITALS: BP 109/51; PULSE 68; RESP 18; TEMP 97.8; O2SAT 95
[2023-10-25 06:16] LABS: ANION GAP 13.2 (8-16); CALCIUM 8.5 mg/dL (8.5-10.1); CARBON DIOXIDE 24.3 mmol/L (21-32); CHLORIDE 103 mmol/L (98-107); CREATININE 0.7 mg/dL (0.6-1.3); GLUCOSE 88 mg/dL (74-106); POTASSIUM 3.5 mmol/L (3.5-5.1); SODIUM SERUM 137 mmol/L (136-145); UREA NITROGEN, BLOOD 21 mg/dL (7-18)
[2023-10-25 06:30] LABS: BASOPHILS % (AUTO) 0.2 % (0.0-2.0); EOSINOPHILS % (AUTO) 0.1 % (0.0-4.0); HEMATOCRIT 27.2 % (36-48); HEMOGLOBIN 8.9 g/dL (12.0-16.0); LYMPHOCYTES # (AUTO) 0.8 K/uL (2.5-16.5); LYMPHOCYTES % (AUTO) 8.8 % (20.5-51.1); MEAN CORPUSCULAR HEMOGLOBIN 28 pg (27-31); MEAN CORPUSCULAR HGB CONC 33 g/dL (33-37); MEAN CORPUSCULAR VOLUME 85.4 fL (80-94); MONOCYTES # (AUTO) 0.6 K/uL (0.8-1.0); MONOCYTES % (AUTO) 6.9 % (1.7-9.3); NEUTROPHILS # (AUTO) 7.6 K/uL (1.8-7.7); PLATELET COUNT (AUTO) 267 K/uL (140-450); RED BLOOD CELL COUNT(AUTO) 3.18 MIL/uL (4.20-5.40); RED CELL DISTRIBUTION WIDTH 16.1 % (11.6-13.7); WHITE BLOOD COUNT (AUTO) 9.1 K/uL (4.8-10.8)
[2023-10-25 08:00] VITALS: BP 94/54; PULSE 67; RESP 18; TEMP 96.4; O2SAT 95; O2SAT 98
[2023-10-25] MEDS: DULoxetine 30 MG CAPDR PO SCH (08:23)
[2023-10-25] MEDS: ASCORBIC ACID 500 MG TAB PO SCH (08:23)
[2023-10-25] MEDS: OXYBUTYNIN 5 MG TAB PO SCH (08:23)
[2023-10-25] MEDS: DOCUSATE SODIUM 100 MG GELCAP PO PRN (08:25)
[2023-10-25] MEDS: GAUZE TP SCH (13:00)
[2023-10-25 20:00] VITALS: BP 99/54; PULSE 76; RESP 20; TEMP 96.5; O2SAT 98
[2023-10-25] MEDS: ATORVASTATIN 20 MG TAB PO SCH (20:11)
[2023-10-25] MEDS: LATANOPROST 0.005% OP 2.5 ML BTL OP SCH (20:12)
[2023-10-25] MEDS: ZOLPIDEM 5 MG TAB PO PRN (23:50)
[2023-10-26 04:00] VITALS: BP 125/75; PULSE 84; RESP 18; TEMP 98; O2SAT 99
[2023-10-26 06:33] LABS: BASOPHILS % (AUTO) 0.2 % (0.0-2.0); HEMATOCRIT 28.5 % (36-48); HEMOGLOBIN 9.3 g/dL (12.0-16.0); LYMPHOCYTES # (AUTO) 0.9 K/uL (2.5-16.5); LYMPHOCYTES % (AUTO) 13.8 % (20.5-51.1); MEAN CORPUSCULAR HEMOGLOBIN 28 pg (27-31); MEAN CORPUSCULAR HGB CONC 33 g/dL (33-37); MEAN CORPUSCULAR VOLUME 84.3 fL (80-94); MONOCYTES # (AUTO) 0.5 K/uL (0.8-1.0); NEUTROPHILS # (AUTO) 5.2 K/uL (1.8-7.7); PLATELET COUNT (AUTO) 231 K/uL (140-450); RED BLOOD CELL COUNT(AUTO) 3.38 MIL/uL (4.20-5.40)
[2023-10-26 06:45] LABS: ANION GAP 9.8 (8-16); CALCIUM 8.7 mg/dL (8.5-10.1); CARBON DIOXIDE 29.3 mmol/L (21-32); CHLORIDE 102 mmol/L (98-107); CREATININE 0.7 mg/dL (0.6-1.3); GLUCOSE 94 mg/dL (74-106); POTASSIUM 4.1 mmol/L (3.5-5.1); SODIUM SERUM 137 mmol/L (136-145); UREA NITROGEN, BLOOD 19 mg/dL (7-18)
[2023-10-26 07:13] LABS: WHITE BLOOD COUNT (AUTO) 6.7 K/uL (4.8-10.8)
[2023-10-26 08:00] VITALS: PULSE 76; RESP 20; O2SAT 98
[2023-10-26] MEDS: DULoxetine 30 MG CAPDR PO SCH (08:55)
[2023-10-26] MEDS: OXYBUTYNIN 5 MG TAB PO SCH (08:56)
[2023-10-26] MEDS: ASCORBIC ACID 500 MG TAB PO SCH (08:56)
[2023-10-26] MEDS ORDERED: VANCOMYCIN 750 MG in DEXTROSE 5% 250 ML IV SCH (09:00)
[2023-10-26] MEDS ORDERED: guaiFENesin 20 MG/ML UDC PO PRN (10:35)
[2023-10-26] MEDS ORDERED: MAGNESIUM HYDROXIDE 2400 MG/30 ML UDC PO PRN (10:35)
[2023-10-26 12:00] VITALS: BP 126/60; PULSE 67; RESP 18; TEMP 97.5; O2SAT 18
[2023-10-26] MEDS: GAUZE TP SCH (13:00)
[2023-10-26] MEDS ORDERED: MERO1VIA15 IV (17:48)
[2023-10-26 18:27] VITALS: BP 118/55; PULSE 69; TEMP 97.1
== END 2023-10-26 18:40 | DRG 570 ==
LOC: MED 21:26 → MTU 10-22 05:26 → UNDOADMIN 10-22 05:26 → MED 10-22 05:26 → MTU 10-22 12:20
PROVIDERS: ADMIT Internal Medicine; ATTEND Internal Medicine
PROC: 0JB80ZZ Excision of Abdomen Subcutaneous Tissue and Fascia, Open Approach (ICD-10-PCS; principal; 2023-10-22 10:50)
DX: L02.211 Cutaneous abscess of abdominal wall (principal); E43 Unspecified severe protein-calorie malnutrition; L03.818 Cellulitis of other sites; Z68.1 Body mass index [BMI] 19.9 or less, adult; L03.311 Cellulitis of abdominal wall; C76.0 Malignant neoplasm of head, face and neck; Z88.8 Allergy status to other drugs, medicaments and biological substances; Z79.899 Other long term (current) drug therapy
CPT/HCPCS: 36415; 71045; 80048; 80076; 80202; 81003; 83605; 85025; 85610; 85730; 87040; 87070; 87075; 87081; 87086; 87205; 93005; 96365; 96368; 97116; 97163-GP; 99285; J2001; J2250; J2270; J2405; J2543; J2704; J3370; J3490; J7060